=== PATIENT | male | born 1985 | race Hispanic/Latino ===

== ENCOUNTER 2018-05-07 10:47 | Emergency (ER) | payer BC, OTHER ==
[~2018-05-07] VITALS: Ht 170.2 cm; Wt 74.8 kg
--- OUTSIDE RECORDS SUMMARY | 2018-05-07 10:50 | XMS REPORT | Continuity of Care Document ---
Author Author [facility] Interface Address Unknown Phone Unavailable Problems Problem Status Onset Date Classification Date Reported Comments Source Medications Medication Details Route Status Patient Instructions Ordering Provider Order Date Source Fluticasone propionate 0.05 MG/ACTUAT Metered Dose Nasal [place] [Flonase] 2 spray, NASAL, Daily, in each nostril, # 16 gm, 1 Refill(s), Pharmacy: [facility]/pharmacy #[id number] Active 04/27/[facility] doxycycline hyclate 100 MG Oral Tablet 100 mg=1 tab, PO, Q12H, X 10 day, # 20 tab, 0 Refill(s), Pharmacy: [facility]/pharmacy #[id number] Active 04/27/2018 [facility] Amoxicillin 875 MG / Clavulanate 125 MG Oral Tablet [Augmentin 875-mg] 875 mg=1 tab, PO, Q12H, X 7 day, # 14 tab, 0 Refill(s), Pharmacy: [facility]/pharmacy #[id number] Active 04/18/2018 [facility] {21 (Methylprednisolone 4 MG Oral Tablet [Medrol]) } Pack [Medrol Dosepak] See Instructions, PO, Take by mouth as directed on label., # 1 Pack, 0 Refill(s), Pharmacy: [facility]/pharmacy #[id number] Active 04/18/2018 [facility] Hydroxyzine 0 Refill(s) Active 04/18/2018 [facility] Strattera PO, QAM, 0 Refill(s) Active 04/18/2018 [facility] Allergies, Adverse Reactions, Alerts Substance Category Reaction Severity Reaction type Status Date Reported Comments Source Immunizations Immunization Date Given Site Status Last Updated Comments Source Results Order Name Results Value Reference Range Date Interpretation Comments Source Vital Signs Vital Sign Value Date Comments Source Weight 80 04/27/2018 [facility] Height 172.72 cm 04/27/2018 [facility] BMI Calculated 26.82 04/27/2018 [facility] Systolic (mm Hg) 137 04/27/2018 [facility] Diastolic (mm Hg) 73 04/27/2018 [facility] Heart Rate 71 04/27/2018 [facility] BMI Calculated 28.25 04/18/2018 [facility] Weight 81.818 04/18/2018 [facility] Height 170.18 cm 04/18/2018 [facility] Temperature Oral (F) 98.4 F 04/18/2018 [facility] Systolic (mm Hg) 116 04/18/2018 [facility] Diastolic (mm Hg) 71 04/18/2018 [facility] Heart Rate 67 04/18/2018 [facility] Encounters Location Location Details Encounter Type Encounter Number Reason For Visit Attending Provider ADM Date DC Date Status Source Outpatient [id number] CRISTIAN-KAYLA ALBERTO 04/18/2018 [facility] [place] Outpatient [id number] [facility] 04/18/2018 04/19/2018 [facility] Outpatient [id number] KATY ISMAKAILASH 04/27/2018 [facility] Out[facility] [id number] Katy Ismail 04/27/2018 04/28/2018 [facility] Procedures Procedure Code Date Perfomer Comments Source
--- OUTSIDE RECORDS SUMMARY | 2018-05-07 10:50 | XMS REPORT | Summary of Care ---
Author Author [facility] Organization [facility] Address Unknown Phone Unavailable Encounter MANOLO Royal(FIN) [id number] Date(s): 04/27/18 - 04/27/18 [facility] [address] [facility] [phone] Discharge Disposition: Home or Self Care Attending Physician: Katy Colon MD Vital Signs Most recent to 1 oldest [Reference Range]: Height 172.72 cm (04/27/18 1:42 PM) Blood Pressure 137/73 mmHg [90-140/60-90 mmHg] (04/27/18 1:42 PM) Peripheral Pulse 71 bpm Rate [60-100 bpm] (04/27/18 1:42 PM) Weight 80 kg (04/27/18 1:42 PM) Body Mass Index 26.82 m2 (04/27/18 1:42 PM) Problem List No data available for this section Allergies, Adverse Reactions, Alerts Substance Reaction Severity Status NKDA Active Medications doxycycline hyclate 100 mg oral tablet 100 mg=1 tab, PO, Q12H, X 10 day, # 20 tab, 0 Refill(s), Pharmacy: [facility]/pharmacy #[id number] Start Date: 04/27/18 Stop Date: 05/07/18 Status: Ordered Flonase 0.05 mg/inh nasal spray 2 spray, NASAL, Daily, in each nostril, # 16 gm, 1 Refill(s), Pharmacy: [facility]/deborah [facility]on #[id number] Start Date: 04/27/18 Status: Ordered Results No data available for this section Immunizations No data available for this section Procedures No data available for this section Social History Social History Type Response Smoking Status Light tobacco smoker; Type: Vape; Ready to change: No; Concerns about tobacco use in household: No; Exposure to Tobacco Smoke None; Cigarette Smoking Last 365 Days No; Reg Smoking Cessation Counseling No entered on: 04/27/18 Assessment and Plan No data available for this section
--- OUTSIDE RECORDS SUMMARY | 2018-05-07 10:50 | XMS REPORT | Summary of Care ---
Author Author [facility] [place] Address Unknown Phone Unavailable Encounter MANOLO Royal(ANYA) [id number] Date(s): 04/18/18 - 04/18/18 [facility] [address] [place] [phone] Discharge Disposition: Home or Self Care Attending Physician: Demarcus Baldwin MD Vital Signs Most recent to 1 oldest [Reference Range]: Height 170.18 cm (04/18/18 11:39 AM) Temperature Oral 98.4 DegF [96.4-99.1 DegF] (04/18/18 11:39 AM) Blood Pressure 116/71 mmHg [90-140/60-90 mmHg] (04/18/18 11:39 AM) Peripheral Pulse 67 bpm Rate [60-100 bpm] (04/18/18 11:39 AM) Weight 81.818 kg (04/18/18 11:39 AM) Body Mass Index 28.25 m2 (04/18/18 11:39 AM) Problem List No data available for this section Allergies, Adverse Reactions, Alerts Substance Reaction Severity Status NKDA Active Medications Augmentin 875 mg oral tablet 875 mg=1 tab, PO, Q12H, X 7 day, # 14 tab, 0 Refill(s), Pharmacy: [id number] Start Date: 04/18/18 Stop Date: 04/25/18 Status: Ordered hydrOXYzine 0 Refill(s) Start Date: 04/18/18 Status: Ordered Medrol Dosepak 4 mg oral tablet See Instructions, PO, Take by mouth as directed on label., # 1 Pack, 0 Refill(s) , Pharmacy: [facility]/pharmacy #[id number] Start Date: 04/18/18 Stop Date: 04/24/18 Status: Ordered Strattera PO, QAM, 0 Refill(s) Start Date: 04/18/18 Status: Ordered Results No data available for this section Immunizations No data available for this section Procedures No data available for this section Social History Social History Type Response Smoking Status Never smoker; Exposure to Tobacco Smoke None; Cigarette Smoking Last 365 Days No; Reg Smoking Cessation Counseling No entered on: 04/18/18 Assessment and Plan No data available for this section
== END 2018-05-07 10:59 | disposition left against medical advice (07) ==
LOC: ER 10:47
DX: R09.89 Other specified symptoms and signs involving the circulatory and respiratory systems (principal)

== ENCOUNTER 2021-03-02 14:59 | Emergency (ER) | payer SELFPAY ==
[~2021-03-02] VITALS: Ht 172.7 cm; Wt 83.9 kg
[2021-03-02 15:56] LABS: BASOPHILS # (AUTO) 0.1 (0.0-0.1); BASOPHILS % 0.9 % (0.0-1.0); EOSINOPHILS # (AUTO) 0.2 (0.0-0.4); EOSINOPHILS % 2.7 % (0.0-6.0); HEMATOCRIT 47.3 % (38.2-49.6); MEAN CORPUSCULAR HEMOGLOBIN 31.6 pg (28-32); MEAN CORPUSCULAR HGB CONC 33.8 g/dL (31-35); MEAN CORPUSCULAR VOLUME 93.3 fL (81-99); MONOCYTES # (AUTO) 0.6 (0.2-0.8); NEUTROPHILS # (AUTO) 4.1 (2.1-6.9); NEUTROPHILS % 59.3 % (38.7-80.0); PLATELET COUNT 303 x10e3/uL (140-360); RED BLOOD COUNT 5.07 x10e6/uL (4.3-5.7); RED CELL DISTRIBUTION WIDTH 12.7 % (11.7-14.4)
[2021-03-02] MEDS ORDERED: LIDOCAINE 4% PATCH TP SCH (16:00)
[2021-03-02 16:15] LABS: ALBUMIN 4.1 g/dL (3.5-5.0); ALBUMIN/GLOBULIN RATIO 1.3 (0.8-2.0); ANION GAP 13.9 mmol/L (8-16); CALCIUM 8.4 mg/dL (8.4-10.2); CREATININE, SERUM 1.62 mg/dL (0.72-1.25); LIPASE 55 U/L (8-78); POTASSIUM 3.9 mmol/L (3.5-5.1)
[2021-03-02] MEDS ORDERED: LIDOPATCH1 EACH TOP (16:51)
[2021-03-02 16:58] VITALS: BP 133/78
== END 2021-03-02 17:05 | disposition home or self-care (01) ==
LOC: ER 15:29
DX: R07.89 Other chest pain (principal); F41.9 Anxiety disorder, unspecified; F98.8 Other specified behavioral and emotional disorders with onset usually occurring in childhood and adolescence; Z87.19 Personal history of other diseases of the digestive system
CPT/HCPCS: 36415; 71101; 80053; 83690; 84484; 85025; 93005; 99284